=== PATIENT | female | born 1955 | race Caucasian/White ===

== ENCOUNTER 2021-01-17 11:22 | Outpatient (REF) | payer OTHER, SELFPAY ==
--- NOTE | ~2021-01-17 | MM_ITS ---
EXAMINATION: MM SCREENING DIGITAL BREAST TOMOSYNTHESIS, BILATERAL CLINICAL INFORMATION: Left lumpectomy 2016 for breast cancer. Due for yearly. COMPARISON: Mammography: 01/12/2020, 01/08/2019, 12/03/2017, 11/28/2016 TECHNIQUE: Digital breast tomosynthesis is performed in both the craniocaudal and mediolateral oblique views along with computer-aided detection (CAD). Synthesized 2D images are generated from the tomosynthesis. FINDINGS: There are scattered areas of fibroglandular density (ACR BI-RADS breast composition Category b). Right breast shows no significant changes from prior studies. There is no interval mass or developing density. Scattered benign calcifications are present, many are dermal. The right axilla and skin contours are unremarkable. There are post therapy changes left breast with scarring mid 9:00 position. Benign coarse dystrophic calcification of fat necrosis is again present at the posterior aspect of the scar. Just anterior to the scar calcification is a 5 x 6 mm smooth nodular opacity, possibly associated nonmineralized fat necrosis. Patient will be recalled for additional imaging. The remainder of the left breast is unremarkable. MM/MM tomosynthesis screening BI IMPRESSION: 1. Left: Smooth nodularity within lumpectomy scar adjacent to benign calcified fat necrosis. 2. Right: No mammographic evidence of malignancy. ASSESSMENT: BI-RADS 0: Incomplete - Need Additional Imaging Evaluation RECOMMENDATION: 1. Additional views of the left breast (3-D spot CC, 3-D spot ML). 2. Targeted ultrasound if warranted after review of the additional views. 3. Radiology department staff will contact the patient for additional imaging. This patient's information was entered into a reminder system with a target due date for their next mammogram.
== END 2021-01-17 11:23 | disposition home or self-care (01) ==
LOC: HO.MAMMO 11:22
PROVIDERS: Visit Provider Nurse Practitioner Family
DX: Z12.31 Encounter for screening mammogram for malignant neoplasm of breast (principal)
CPT/HCPCS: 77063; 77067

== ENCOUNTER 2021-01-24 08:25 | Outpatient (REF) | payer OTHER, SELFPAY ==
--- NOTE | ~2021-01-24 | MM_ITS ---
EXAMINATION: MM DIAGNOSTIC DIGITAL BREAST TOMOSYNTHESIS, LEFT US DIAGNOSTIC ULTRASOUND BREAST, LEFT CLINICAL INFORMATION: Recall from screening mammography for nodularity within lumpectomy scar adjacent to benign calcified fat necrosis. Left lumpectomy 2016 for breast cancer. COMPARISON: Mammography: 01/17/2021, 01/12/2020, 01/08/2019, 12/03/2017, 11/28/2016, outside mammography [facility] dated 01/06/2016, 12/26/2015. TECHNIQUE: Digital breast tomosynthesis is performed. 2D images are generated from the tomosynthesis. The following views are obtained: 3-D spot CC, 3-D spot ML Ultrasound left breast is targeted to the inner quadrants along the scar. Grayscale imaging and color Doppler are performed. FINDINGS: There are scattered areas of fibroglandular density (ACR BI-RADS breast composition Category b). Just anterior to the benign lumpectomy scar calcification is a non-calcified macrolobulated nodule measuring approximately 0.6 x 0.7 cm. There is a second nodule along the scar 2 cm more anterior, oval and smooth measuring 0.4 x 0.7 cm. These represent developing densities since 2018. Ultrasound medial left breast along the lumpectomy scar demonstrates a strong area of shadowing corresponding to the benign bulky calcification of fat necrosis measuring 9 mm in diameter. Just superficial and anterior to this calcification is an irregular hypoechoic lesion measuring approximately 0.5 x 0.6 cm with associated moderate internal color flow on color Doppler. This may involve the deep dermis. There is a second smooth oval nodule 1.7 cm more anteriorly along the scar possibly involving deep dermis and measuring 0.3 x 0.8 cm, also with some internal color flow. Results are discussed with the patient at time of visit. The 2 nodules along the lumpectomy scar may represent benign post therapy changes such as nonmineralized fat necrosis. Ultrasound-guided needle biopsy of both lesions is recommended to confirm benign change and exclude recurrence. Patient is in agreement. Results and recommendation called to office (Jennifer) for provider Liz Diggs CNP on 01/24/2021. MM/MM tomosynthesis added views L IMPRESSION: Two hypoechoic nodules with internal color flow along lumpectomy scar. ASSESSMENT: BI-RADS 4: Suspicious RECOMMENDATION: Ultrasound-guided core biopsy (2 sites) left breast along lumpectomy scar inner quadrant.
== END 2021-01-24 08:26 | disposition home or self-care (01) ==
LOC: HO.MAMMO 08:25
PROVIDERS: Visit Provider Nurse Practitioner Family
DX: R92.8 Other abnormal and inconclusive findings on diagnostic imaging of breast (principal)
CPT/HCPCS: 76642; 77061; 77065

== ENCOUNTER 2021-01-26 09:32 | Outpatient (REF) | payer OTHER, SELFPAY ==
--- NOTE | ~2021-01-26 | US_ITS ---
EXAMINATION: ULTRASOUND GUIDED CORE BIOPSY BREAST (TWO SITES), LEFT POST PROCEDURE DIGITAL MAMMOGRAM, LEFT CLINICAL INFORMATION: Nodularity x 2 within lumpectomy site/scar, one adjacent large benign coarse calcification of fat necrosis. Assess for sequela post surgical change versus recurrence. Prior biopsy and lumpectomy at local outside facility ([facility]). COMPARISON: Mammography 01/17/2021, 01/24/2021, targeted left breast ultrasound 01/24/2021. FINDINGS: Proper informed consent is obtained from the patient after discussion of the procedure, potential risks and complications, and alternatives. Patient was given an opportunity for questions. The patient appeared to understand. The patient consented to the procedure and signed the consent form. SPECIMEN A: LOCATION: More posterior of the 2 lesions, immediately adjacent to the benign coarse calcification within the lumpectomy scar.. GUIDANCE: Ultrasound-guided; aseptic technique. LESION: Irregular hypoechoic superficial lesion measuring 5 x 6 mm. APPROACH: Mediolateral. ANESTHESIA: 7 mL 1% lidocaine. DERMATOTOMY: Single skin edd dermatotomy performed. NEEDLE: 14-gauge Achieve core biopsy device with 13.5-gauge co-axial guide needle. CORES: 5. CLIP: HydroMARK; shape: butterfly. SPECIMEN B: New biopsy supplies are used. LOCATION: More anterior of the 2 lesions. GUIDANCE: Ultrasound-guided; aseptic technique. LESION: Oval hypoechoic superficial lesion near lumpectomy scar measuring 3 x 8 mm. APPROACH: Medial lateral. ANESTHESIA: 4 mL 1% lidocaine. DERMATOTOMY: The same skin edd dermatotomy site from the first lesion is used to access the lesion for the second biopsy. NEEDLE: 14-gauge Achieve core biopsy device with 13.5-gauge co-axial guide needle. CORES: 3. The lesion is difficult to visualize after the third sample precluding additional cores. CLIP: HydroMARK; shape: open coil. The lesion is difficult to visualize after the third sample. Clip marker placed in general vicinity of lesion. POST PROCEDURE DIGITAL MAMMOGRAM: The post biopsy mammogram is performed in separate room using separate digital mammography equipment from the biopsy procedure. CC and LM views are obtained. There are scattered areas of fibroglandular density (breast composition category: b). The clip markers are in position. No gross hematoma. The patient tolerated the procedure well. No immediate complications. Home instructions reviewed with the patient. Final pathology results are pending. US/US breast ndl core bio ea add IMPRESSION: 1. Status post ultrasound-guided core biopsy left breast, 2 sites. 2. Clips placed: HydroMARK; shape: butterfly and HydroMARK; shape: open coil 3. Pathology pending. An addendum report will be issued.
--- NOTE | ~2021-01-26 | US_ITS ---
EXAMINATION: ULTRASOUND GUIDED CORE BIOPSY BREAST (TWO SITES), LEFT POST PROCEDURE DIGITAL MAMMOGRAM, LEFT CLINICAL INFORMATION: Nodularity x 2 within lumpectomy site/scar, one adjacent large benign coarse calcification of fat necrosis. Assess for sequela post surgical change versus recurrence. Prior biopsy and lumpectomy at local outside facility ([facility]). COMPARISON: Mammography 01/17/2021, 01/24/2021, targeted left breast ultrasound 01/24/2021. FINDINGS: Proper informed consent is obtained from the patient after discussion of the procedure, potential risks and complications, and alternatives. Patient was given an opportunity for questions. The patient appeared to understand. The patient consented to the procedure and signed the consent form. SPECIMEN A: LOCATION: More posterior of the 2 lesions, immediately adjacent to the benign coarse calcification within the lumpectomy scar.. GUIDANCE: Ultrasound-guided; aseptic technique. LESION: Irregular hypoechoic superficial lesion measuring 5 x 6 mm. APPROACH: Mediolateral. ANESTHESIA: 7 mL 1% lidocaine. DERMATOTOMY: Single skin edd dermatotomy performed. NEEDLE: 14-gauge Achieve core biopsy device with 13.5-gauge co-axial guide needle. CORES: 5. CLIP: HydroMARK; shape: butterfly. SPECIMEN B: New biopsy supplies are used. LOCATION: More anterior of the 2 lesions. GUIDANCE: Ultrasound-guided; aseptic technique. LESION: Oval hypoechoic superficial lesion near lumpectomy scar measuring 3 x 8 mm. APPROACH: Medial lateral. ANESTHESIA: 4 mL 1% lidocaine. DERMATOTOMY: The same skin edd dermatotomy site from the first lesion is used to access the lesion for the second biopsy. NEEDLE: 14-gauge Achieve core biopsy device with 13.5-gauge co-axial guide needle. CORES: 3. The lesion is difficult to visualize after the third sample precluding additional cores. CLIP: HydroMARK; shape: open coil. The lesion is difficult to visualize after the third sample. Clip marker placed in general vicinity of lesion. POST PROCEDURE DIGITAL MAMMOGRAM: The post biopsy mammogram is performed in separate room using separate digital mammography equipment from the biopsy procedure. CC and LM views are obtained. There are scattered areas of fibroglandular density (breast composition category: b). The clip markers are in position. No gross hematoma. The patient tolerated the procedure well. No immediate complications. Home instructions reviewed with the patient. Final pathology results are pending. US/US breast ndl core biopsy LT IMPRESSION: 1. Status post ultrasound-guided core biopsy left breast, 2 sites. 2. Clips placed: HydroMARK; shape: butterfly and HydroMARK; shape: open coil 3. Pathology pending. An addendum report will be issued.
== END 2021-01-26 09:33 | disposition home or self-care (01) ==
LOC: HO.MAMMO 09:32
PROVIDERS: Radiology Diagnostic Radiology; Visit Provider Nurse Practitioner Family
DX: C50.812 Malignant neoplasm of overlapping sites of left female breast (principal); Z17.0 Estrogen receptor positive status [ER+]
CPT/HCPCS: 19083; 19084; 36415; 77065; 88305; 88341; 88342; 88360; 88374; A4648